=== PATIENT | male | born 1995 | race Caucasian/White ===

== ENCOUNTER → 2018-07-30 | Outpatient (REF) | payer BC ==
[2018-07-30 19:53] LABS: CHLAMYDIA DNA AMPLIFICATION NEGATIVE (NEGATIVE); GC DNA AMPLIFICATION NEGATIVE (NEGATIVE)
== END ==
LOC: M LAB REF 17:03
DX: Z11.3 Encounter for screening for infections with a predominantly sexual mode of transmission (principal)